=== PATIENT | female | born 1995 | race Caucasian/White ===

== ENCOUNTER 2018-02-16 15:47 | Inpatient (IN) | payer OTHER ==
[2018-02-16] MEDS ORDERED: diphenhydrAMINE 50 MG/ML VIAL ONE (15:53)
[2018-02-16] MEDS ORDERED: Haloperidol Lactate 5 MG/ML VIAL ONE (15:53)
[2018-02-16 16:12] LABS: #Basophils 0.1 thou/uL (0.0-0.2); #Eosinphils 0.5 thou/uL (0.0-0.7); #Lymphocytes 3.2 thou/uL (1.20-3.40); #Monocytes 0.9 thou/uL (0.11-0.59); #Neutrophils 4.7 thou/uL (1.40-6.50); %Eosinophils 5.2 % (0.0-10.0); %Lymphocytes 34.1 % (21.0-51.0); %Neutrophils 49.7 % (42.0-75.0); Hemoglobin 14.4 g/dL (12.0-16.0); Mean Corpuscular HGB CONC 35.5 g/dL (32.0-36.0); Mean Corpuscular Hemoglobin 32.8 pg (27.0-31.0); Mean Corpuscular Volume 92.3 fL (78.0-98.0); Mean Platelet Volume 6.9 fL (7.4-10.4); Platelet Count 219 thou/uL (130-400); RBC Distribution Width 11.1 % (11.5-14.5); Red Blood Cell (RBC) Count 4.38 mill/uL (4.20-5.40); White Blood Cell (WBC) Count 9.4 thou/uL (4.8-10.8)
[2018-02-16 16:18] LABS: Bilirubin Negative (Negative); Blood, Urine Negative (Negative); Clarity CLEAR (Clear); Glucose, Urine (Dipstick) Negative (Negative); Leukocyte Negative (Negative); Nitrite Negative (Negative); Protein, Urine (Dipstick) Negative (Neg-Trace); Specific Gravity, Urine 1.008 (1.002-1.036); Urobilinogen 0.2 mg/dL (0.2-1.0)
[2018-02-16 16:21] LABS: Pregnancy Test - Urine (BHCG) Negative (Negative); Pregu Control Background? CLEAR/WHITE (CLR/WHITE); Pregu Control Bar Appear? YES (CONTROL BAR); Specific Gravity 1.008 (1.002-1.036)
[2018-02-16 16:28] LABS: Amphetamine Not Detected (NotDetected); Barbiturates Screen Not Detected (NotDetected); Benzodiazepine Screen Not Detected (NotDetected); Cocaine Metabolite Screen Not Detected (NotDetected); Medtox Control Line Valid? VALID (VALID); Medtox Reader # READER 4; Methadone Not Detected (NotDetected); Methamphetamine Not Detected (NotDetected); Opiate Screen Not Detected (NotDetected); Oxycodone Screen Not Detected (NotDetected); Phencyclidine (PCP) Not Detected (NotDetected); THC/Cannabinoid Screen Not Detected (NotDetected); Tricyclic Screen Not Detected (NotDetected)
[2018-02-16 16:33] LABS: ALT (SGPT) 52 U/L (8-55); AST (SGOT) 50 U/L (5-34); Acetaminophen Less than 6.0 mcg/mL (10.0-30.0); Albumin 4.7 g/dL (3.5-5.0); Alcohol Less than 10 mg/dL (Less than 10); Alkaline Phosphatase 124 U/L (40-150); Anion Gap 24 mmol/L (10-20); BUN (Urea Nitrogen) 12 mg/dL (7.0-18.7); Bilirubin, Total 0.4 mg/dL (0.2-1.2); CK (CPK) 90 U/L (29-168); Calc. Creatinine Clearance 0 mL/min (70-130); Calcium 9.9 mg/dL (7.8-10.44); Carbon Dioxide 15 mmol/L (22-29); Chloride 105 mmol/L (98-107); Estimated GFR-MDRD 74; Globulin 2.9 g/dL (2.4-3.5); Glucose 96 mg/dL (70-105); Potassium 3.6 mmol/L (3.5-5.1); Protein, Total 7.6 g/dL (6.0-8.3); Salicylate Less than 8.0 mg/dL (15.0-30.0); Sodium 140 mmol/L (136-145)
--- NOTE | 2018-02-16 16:34 | RAD ---
SINGLE VIEW CHEST: Date: 02/16/18 INDICATION: History of seizure. COMPARISON: Prior exam dated 01/14/16. FINDINGS: The previously seen right IJ chest wall port is no longer present. Lungs are clear. Cardiomediastinal silhouette is within normal limits. IMPRESSION: 1. No acute cardiopulmonary abnormality. 2. Removal of previously seen right IJ chest wall port. POS: [facility]
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
[2018-02-16] MEDS ORDERED: Lorazepam 2 MG/ML VIAL ONE (17:25)
[2018-02-16] MEDS ORDERED: levETIRAcetam 500 MG/100 ML PREMIX BAG ONE (17:27)
[2018-02-16] MEDS ORDERED: Ondansetron HCl/PF 4 MG/2 ML Vial IVP PRN (20:12)
[2018-02-16] MEDS ORDERED: Acetaminophen 325 MG TAB PO PRN (20:12)
[2018-02-16] MEDS ORDERED: Lorazepam 2 MG/ML VIAL SLOW IVP PRN (20:24)
[2018-02-16] MEDS: levETIRAcetam 500 MG TAB PO SCH (21:39)
[2018-02-16] MEDS: Escitalopram Oxalate 10 mg Tablet PO SCH (21:39)
[2018-02-16 21:42] VITALS: BMI 31.5
[2018-02-17 06:07] LABS: Anion Gap 8 mmol/L (10-20); BUN (Urea Nitrogen) 8 mg/dL (7.0-18.7); Calc. Creatinine Clearance 149 mL/min (70-130); Carbon Dioxide 23 mmol/L (22-29); Chloride 110 mmol/L (98-107); Estimated GFR-MDRD Greater than 90; Glucose 88 mg/dL (70-105); Potassium 3.3 mmol/L (3.5-5.1); Sodium 138 mmol/L (136-145)
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
[2018-02-17 06:43] LABS: #Eosinphils 0.1 thou/uL (0.0-0.7); #Lymphocytes 1.1 thou/uL (1.20-3.40); #Monocytes 0.6 thou/uL (0.11-0.59); #Neutrophils 5.3 thou/uL (1.40-6.50); %Basophils 0.6 % (0.0-1.0); %Eosinophils 0.9 % (0.0-10.0); %Lymphocytes 15.2 % (21.0-51.0); %Neutrophils 74.3 % (42.0-75.0); Hemoglobin 12.6 g/dL (12.0-16.0); Mean Corpuscular HGB CONC 36.5 g/dL (32.0-36.0); Mean Corpuscular Hemoglobin 33.7 pg (27.0-31.0); Mean Corpuscular Volume 92.5 fL (78.0-98.0); Mean Platelet Volume 7.4 fL (7.4-10.4); Platelet Count 151 thou/uL (130-400); RBC Distribution Width 11.1 % (11.5-14.5); Red Blood Cell (RBC) Count 3.73 mill/uL (4.20-5.40); White Blood Cell (WBC) Count 7.1 thou/uL (4.8-10.8)
[2018-02-17] MEDS: levETIRAcetam 500 MG TAB PO SCH ×2 (08:23→20:05)
[2018-02-17] MEDS: Enoxaparin Sodium 40 MG/0.4 ML SYRINGE SC SCH (08:23)
[2018-02-17] MEDS ORDERED: Prevnar 13-Val Conj/PF 0.5 ML SYRINGE IM ONE (09:00)
[2018-02-17] MEDS ORDERED: Gadobenate Dimeglumine 529 MG/1 ML (20ML VIAL) ONE (10:54)
--- NOTE | 2018-02-17 12:10 | MRI ---
MRI OF BRAIN PERFORMED WITH AND WITHOUT CONTRAST ENHANCEMENT: Date: 02/17/18 COMPARISON: MRI study that was performed on 07/02/15. CT study performed 02/16/18. HISTORY: Follow-up of frontal mass. FINDINGS: Ventricular and cisternal system is within normal limits. There is a stable appearance to a nonenhanc ing T1 hypo and T2 hyperintense right frontal mass, which would suggest a low grade glioma. No shift of midline structures. I do not see any evidence for hemorrhage. Postop craniotomy changes are noted. 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 IMPRESSION: Stable appearance to the infiltrative appearing nonenhancing right frontal lobe mass. Changes would s uggest some type of low grade glioma. POS: [facility]
[2018-02-17] MEDS ORDERED: Dexamethasone 10 MG in Sodium Chloride 0.9% 50 ML IVPB SCH (14:00)
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
--- NOTE | 2018-02-17 17:07 | PDOC.PN ---
- Subjective Encounter Start Date: 02/17/18 Encounter Start Time: 17:07 Pt seen for followup re: seizure. Denies chest pain, shortness of breath, fevers or chills. No nausea or vomiting. - Objective Resuscitation Status: Resuscitation Status FULL:Full Resuscitation Vital Signs & Weight: Vital Signs (12 hours) Temp Pulse Resp BP Pulse Ox 02/17/18 15:21 97.5 F L 86 16 118/58 L 98 02/17/18 11:16 98.4 F 90 14 110/57 L 97 02/17/18 08:00 99.1 F 82 14 96 02/17/18 07:54 99.1 F 82 14 122/55 L 96 Weight Weight 178 lb 1.6 oz Result Diagrams: 02/17/18 05:22 02/17/18 05:22 EKG Reviewed by me: Yes (Tele: NSR) Phys Exam - Physical Examination Obese HEENT: moist MMs, sclera anicteric, oral pharynx no lesions, 2+ tonsils Neck: no nodes, no JVD, supple, full ROM Respiratory: no wheezing, no rales, no rhonchi, clear to auscultation bilateral Cardiovascular: RRR, no rub S1, S2 Gastrointestinal: soft, non-tender, no distention, positive bowel sounds Musculoskeletal: no edema Neurological: moves all 4 limbs Psychiatric: normal affect Deviation from normal: 3 blisters on right hand Dx/Plan (1) Seizure Code(s): R56.9 - UNSPECIFIED CONVULSIONS Status: Acute Comment: no recurrence, continue IV Keppra (2) Brain tumor Code(s): D49.6 - NEOPLASM OF UNSPECIFIED BEHAVIOR OF BRAIN Status: Acute Comment: started on steroids by neurosurgery team (3) Blister of hand Code(s): S60.529A - BLISTER (NONTHERMAL) OF UNSPECIFIED HAND, INITIAL ENCOUNTER Status: Acute Comment: non itchy, etiology unclear. Watch for progression. - Plan * . Review of Systems - Review of Systems Constitutional: negative: fever, chills, sweats, weakness, malaise Respiratory: negative: Cough, Shortness of Breath, SOB with Excertion, Pleuritic Pain, Wheezing Cardiovascular: negative: chest pain, palpitations, orthopnea, paroxysmal nocturnal dyspnea, edema, light headedness Gastrointestinal: negative: Nausea, Vomiting, Abdominal Pain, Diarrhea, Constipation, Melena, Hematochezia Genitourinary: negative: Dysuria, Frequency, Incontinence, Hematuria, Retention - Medications/Allergies Allergies/Adverse Reactions: Allergies Allergy/AdvReac Type Severity Reaction Status Date / Time CHERRIES Allergy Intermediate VOMITING/ Uncoded 01/13/16 08:52 DIARRHEA Medications: Current Medications Acetaminophen (Tylenol) 650 mg PO Q4H PRN PRN Reason: Headache/Fever or Pain Enoxaparin Sodium (Lovenox) 40 mg SC 0900 [facility] Last Admin: 02/17/18 08:23 Dose: 40 mg Escitalopram Oxalate (Lexapro) 10 mg PO HS [facility] Last Admin: 02/16/18 21:39 Dose: 10 mg Dexamethasone 4 mg/ Sodium (Chloride) 50.4 mls @ 100 mls/hr IVPB Q6HR [facility] Levetiracetam (Keppra) 500 mg PO BID [facility] Last Admin: 02/17/18 08:23 Dose: 500 mg Lorazepam (Ativan) 2 mg SLOW IVP Q6H PRN PRN Reason: Seizures Ondansetron HCl (Zofran) 4 mg IVP Q6H PRN PRN Reason: Nausea/Vomiting Pantoprazole Sodium (Protonix) 40 mg IVP DAILY [facility]
[2018-02-17] MEDS: Dexamethasone 4 MG in Sodium Chloride 0.9% 50 ML IVPB SCH (17:31)
[2018-02-17] MEDS: Escitalopram Oxalate 10 mg Tablet PO SCH (20:05)
[2018-02-18] MEDS: Dexamethasone 4 MG in Sodium Chloride 0.9% 50 ML IVPB SCH ×2 (06:41)
[2018-02-18 07:16] VITALS: BP 114/56; TEMP 96.9
[2018-02-18] MEDS: Enoxaparin Sodium 40 MG/0.4 ML SYRINGE SC SCH (08:31)
[2018-02-18] MEDS: levETIRAcetam 500 MG TAB PO SCH (08:32)
[2018-02-18] MEDS ORDERED: Pantoprazole 40 MG VIAL IVP SCH (09:00)
[2018-02-18] MEDS ORDERED: Dexamethasone 4 MG TAB PO SCH (12:00)
[2018-02-18] MEDS ORDERED: Potassium Chloride 20 MEQ TAB PO SCH (12:00)
--- NOTE | 2018-02-18 12:04 | DIS ---
DATE OF ADMISSION: 02/16/2018 DATE OF DISCHARGE: 02/18/2018 PRIMARY CARE PROVIDER: Kirsten Mars M.D. DISCHARGE DIAGNOSES: 1. Seizures. 2. Metabolic acidosis. 3. Acute encephalopathy secondary to postictal state. 4. Low grade glioma. CONDITION OF PATIENT ON THE DAY OF DISCHARGE: Stable. I assessed Ms. Garcia on the day of discharge. She denies any chest pain or shortness of breath. Vital signs are stable. S1 and S2 are heard, re gular. Lungs are clear to auscultation bilaterally. DISCHARGE MEDICATIONS: Protonix 40 mg daily, Keppra 500 mg 2 times a day, dexamethasone 4 mg 4 times a day, Lexapro 10 mg at bedtime. CONSULTATIONS DURING THIS HOSPITALIZATION: Neurosurgery Service and Neurology, Dr. Santoyo. HOSPITAL COURSE: Ms. Sheffield is a pleasant 22-year-old lady who was admitted to [facility] for seizures on 02/16/2018. Please refer to Dr. Moreno's history and physical note uriah ed 02/17/2018 for further details. She was seen by Neurology and Neurosurgery Services. MRI of the brain showed stable appearance to the infiltrative appearing nonenhancing right frontal lo be mass, changes would suggest some type of low grade glioma according to Radiology Service. She was started on dexamethasone. She was also started on Keppra 500 mg 2 times a day and Protonix. She di d not have any further seizures. She has been cleared for discharge by Neurosurgery Service. Neuros urgery service will follow up with her as outpatient. Many thanks for allowing me to participate in your patient's care. Please feel free to contact me wi th any questions or concerns. DISCHARGE DESTINATION: Home. TOTAL AMOUNT OF TIME SPENT COORDINATING THIS DISCHARGE: 33 minutes.
--- NOTE | 2018-02-18 13:55 | PRG ---
DATE OF SERVICE: 02/18/2018 CHIEF COMPLAINT: Seizures. INTERVAL HISTORY: The patient remains stable overnight and she is being discharged and I saw her haider or to her discharge this morning. LABORATORY DATA: No new laboratory test results were available. PHYSICAL EXAMINATION: VITAL SIGNS: Blood pressure 114/56, temperature 96.9, pulse 67, respiratory rate 14. GENERAL APPEARANCE: Well-built, well-nourished lady. NEUROLOGIC: Higher intellectual functions, normal orientation to time, place, person. Cranial nerve s: No facial asymmetry. Normal extraocular movements, tongue midline. Motor examination: Bulk nor mal, tone normal, strength was normal in upper extremities. Lower extremity strength was 4/5. Gait, she had eversion of the right foot while walking and slowness while walking and she is cautious. IMPRESSION: The patient is a 22-year-old lady with astrocytoma and frontal lobe seizures. She had o ne event yesterday which brought her back to the hospital. She has been off Keppra for a while and K eppra was restarted and she had no further events. RECOMMENDATIONS: 1. I advised the patient to continue Keppra. 2. See her neurologist, Dr. John as soon as she is discharged. Please call if any further quest ions.
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
== END 2018-02-18 12:17 | disposition home or self-care (01) | DRG 54 ==
LOC: ERS 15:47 → 2NO 18:00
PROVIDERS: ADMIT Internal Medicine; ATTEND Internal Medicine
DX: C71.1 Malignant neoplasm of frontal lobe (principal); G93.40 Encephalopathy, unspecified; G93.6 Cerebral edema; E87.2 Acidosis; E86.0 Dehydration; Z92.21 Personal history of antineoplastic chemotherapy; Z92.3 Personal history of irradiation; R40.2414 Glasgow coma scale score 13-15, 24 hours or more after hospital admission; Z91.018 Allergy to other foods
CPT/HCPCS: 36415; 36416; 51701; 70450; 70553; 71045; 72125; 80048; 80053; 80306; 80307; 81003; 81025; 82550; 84443; 85025; 90471; 90670; 93005; 96361; 96365; 96372; 96375; A4353; A9579; G0009; J1100; J1200; J1630; J1650; J1953; J2060; J7050; J8540